=== PATIENT | female | born 2000 | race Two or more races ===

== ENCOUNTER → 2024-08-23 | Outpatient (BNVA) | payer OTHER, SELFPAY | END | disposition home or self-care (01) | PROVIDERS: PCP Nurse Practitioner Family; Referring Provider Nurse Practitioner Family; Visit Provider Nurse Practitioner Family | DX: Z23 Encounter for immunization (principal) | CPT/HCPCS: 90471; 90472; 90707; 90715; 99212 ==

== ENCOUNTER → 2024-10-14 | Outpatient (BNVA) | payer OTHER, SELFPAY | END | disposition home or self-care (01) | PROVIDERS: PCP Nurse Practitioner Family; Referring Provider Nurse Practitioner Family; Visit Provider Nurse Practitioner Family | DX: Z71.2 Person consulting for explanation of examination or test findings (principal); E78.5 Hyperlipidemia, unspecified; E55.9 Vitamin D deficiency, unspecified | CPT/HCPCS: 99212; G0463 ==